=== PATIENT | female | born 1970 | race Caucasian/White ===

== ENCOUNTER 2017-07-27 16:49 | Emergency (ER) | payer SELFPAY ==
[~2017-07-27] VITALS: Ht 170.2 cm; Wt 65.8 kg
[~2017-07-27 16:49] MED LIST: AMOXICILLIN PO; ELIMITE60 GM TOP; FLOXIN20 EA OP; NO MEDICATIONS; SEE NOTE; VOLTAREN75 MG PO; [UNRECOGNIZED DRUG - OTHER]
== END 2017-07-27 18:45 | disposition home or self-care (01) ==
LOC: SED 16:49
DX: T40.1X1A Poisoning by heroin, accidental (unintentional), initial encounter (principal); F17.200 Nicotine dependence, unspecified, uncomplicated
CPT/HCPCS: 96361; 96374; 99284; J2405